=== PATIENT | male | born 1960 | race Caucasian/White ===

== ENCOUNTER → 2016-06-02 | Outpatient (CLI) | payer MEDICAID ==
[~2016-06-02] MED LIST: DAPT500V3 IV; ERGO500044 PO; OXYC5TAB84 PO; RANI150T7 PO
--- NOTE | 2016-06-02 20:44 | WOUNDPNF ---
DATE June 02, 2016 CHIEF COMPLAINT Followup for osteomyelitis of the xiphoid. HISTORY OF PRESENT ILLNESS Mr. 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 Following that he has had problems with poor healing around the upper uppermost portion of his abdominal incision which is located near the xiphoid process. He underwent incision and drainage of the draining sinus tracts with debridement of chronic granulation tissue on March 03, [address] Beltran in his office. I do not believe there were any wound cultures obtained at that time. He followed in the wound clinic for this wound and had a wound VAC placed. His wound appeared to be closed and healed on April 29. His chemotherapy was resumed on May 03 and following that he had redness and swelling and problems with recurrent infection. He was admitted recently on May [address] Beltran debrided what appeared to be an abscess cavity filled with chronic granulation tissue. He was noted to have exposed bone at the tip of the xiphoid. Wound cultures grew methicillin-resistant Staph aureus resistant to ciprofloxacin and oxacillin and susceptible to all the other agents tested. He also had a CT scan which showed an irregular soft tissue defect with erosion of the xiphoid process consistent with osteomyelitis. He was initially started on vancomycin and Zosyn on May 17 on admission. His antibiotics were changed to daptomycin on May 21 for outpatient therapy. He comes in today for followup and he denies any problems tolerating his antibiotics. He denies any specific complaints. I was contacted two days ago by Dr. Naqvi with regard to his elevated liver function tests which seemed to be worsening. He also had a right upper quadrant ultrasound obtained on May 31 which was negative for biliary ductal dilatation and had no focal hepatic lesions identified. PAST MEDICAL HISTORY, PAST SURGICAL HISTORY, SOCIAL HISTORY, FAMILY HISTORY, Reviewed. ALLERGIES No known drug allergies. CURRENT MEDICATIONS Reviewed. He is on oxycodone, Zantac, daptomycin. He denies taking Tylenol on a daily basis. REVIEW OF SYSTEMS He denies any fevers, chills or sweats. He denies any nausea, vomiting or diarrhea. He denies any abdominal pain. He has a port in place and he denies any problems related to that. PHYSICAL EXAMINATION VITAL SIGNS: Temperature 96.8, blood pressure 112/73, pulse 52, respirations 12. Weight is 154 pounds. GENERAL: He appears comfortable and is in no acute distress. HEENT: Pupils equal, round, reactive to light. Extraocular movements intact. Oropharynx is clear. NECK: Supple. HEART: Regular rate and rhythm. No murmurs noted. LUNGS: Clear to auscultation bilaterally. ABDOMEN: Soft, nontender. He has bowel sounds present. No guarding or rebound. WOUND: He has a wound VAC over the xiphoid process. I reviewed photographs on the computer of his wound and within the past few days he has had two photographs which show improvement in his wound. EXTREMITIES: No significant edema. No joint effusions are noted. SKIN: No rashes. He has a port at right anterior chest which is accessed without any surrounding redness. NEUROLOGIC: Exam is grossly nonfocal. He is alert and oriented x 3. Speech is normal. PSYCHIATRIC: Mood and affect are appropriate. LABORATORY On May 20 his ALT was 98 and this has increased to 198 on May 31. AST on May 20 was 82 and on May 31 was 210. His total bilirubin is normal at 0.6. Alkaline phosphatase has been elevated since April. May 31 it was 468 and on May 20 it was 342. C-reactive protein on May 17 was 11.5. His total CK was 170 on May 31. On May 31 his white count was 8.6, hemoglobin 11.9, platelets 149. IMPRESSION 1. Wound dehiscence/abscess, status post irrigation and debridement with exposed xiphoid bone noted as well as CT findings suggestive of osteomyelitis of the xiphoid, cultures with methicillin-resistant Staph aureus. 2. Carcinoma of the colon, stage IV, with hepatic metastases, status post right hepatic lobectomy. 3. Gastroesophageal reflux disease. 4. History of mild neutropenia. PLAN/DISCUSSION I reviewed the patient's medications with him. He is currently not on any chemotherapy agents. However, I do know there are plans to resume a palliative regimen of chemotherapy per Dr. Naqvi in the near future. He does not appear to be taking any other medications that are hepatotoxic. Daptomycin has about a 3% incidence of hepatotoxicity. At the present time he appears to be asymptomatic. I would recommend continuing with the daptomycin for now and continue to monitor his liver function tests. If they continue to increase then we might need to consider changing the vancomycin. However, this would necessitate twice-daily dosing. I will have him return to see me in followup next week. Thank you for allowing me to participate in the care of this patient. IBIS
== END ==
LOC: NWCC 11:43
PROVIDERS: ATTEND Internal Medicine Infectious Disease
DX: T81.89XA Other complications of procedures, not elsewhere classified, initial encounter (principal); Y83.8 Other surgical procedures as the cause of abnormal reaction of the patient, or of later complication, without mention of misadventure at the time of the procedure; Z87.898 Personal history of other specified conditions; C18.9 Malignant neoplasm of colon, unspecified; K21.9 Gastro-esophageal reflux disease without esophagitis

== ENCOUNTER → 2016-06-10 | Outpatient (CLI) | payer MEDICAID ==
--- NOTE | 2016-06-10 21:33 | WOUNDPNF ---
DATE 06/10/2016 HISTORY This patient has an open wound at the medial end of a right subcostal abdominal incision following incision and drainage of a subcutaneous abscess at the superior medial end of the right subcostal abdominal incision with excisional debridement of chronic granulation tissue at the subcutaneous tissue and fascia level on 05/17/[address] Beltran at [facility]. The patient has a wound VAC in place at this open wound at the upper abdomen. The wound VAC is set at a negative pressure of 150 mmHg. The patient states he will be resuming chemotherapy by Dr. Naqvi on 06/14/2016. PHYSICAL EXAMINATION Vital signs: Blood pressure is 129/87. Pulse is 62. Temperature is 97.3 degrees Fahrenheit. Weight is 150 pounds. ABDOMEN: The patient has a right subcostal abdominal incision. The patient has an open wound at a short vertically oriented extension at the medial end of the right subcostal abdominal incision. The wound is 2 cm x 1.2 cm in size today. The wound is 0.4 cm deep. There is a little bit of skin growing from the superior right margin of the wound down deep to the skin and down into the subcutaneous tissue level. Most of the wound is filled with granulation tissue. This granulation tissue is projecting up above the level of the surrounding skin at most of the wound. This is hypergranulation tissue. IMPRESSION 1. Status post right hepatic lobectomy on 03/31/2016. 2. Open wound at short vertically oriented extension at medial end of right subcostal abdominal incision following incision and drainage of subcutaneous abscess at superior medial end of right subcostal abdominal incision with excisional debridement of chronic granulation tissue at the subcutaneous tissue and fascia level on 05/17/2016. TREATMENT The wound VAC was removed at the open wound at the right subcostal abdominal incision today by [facility] nurses. Wound assessment was performed by Dr. Beltran. Some EMLA Cream was applied to the open wound to provide topical anesthesia. The hypergranulation tissue covering about 90% of the open wound today was treated by chemical cauterization with silver nitrate sticks by Dr. Beltran. Sharp excisional debridement was performed with a dermal curette by Dr. Beltran at the right superior margin of the wound where skin was growing down into the subcutaneous tissue level. This skin was debrided from the subcutaneous tissue level with the dermal curette with sharp excisional debridement. This did produce some bleeding at this level which was controlled by application of direct pressure. Satisfactory hemostasis was achieved. This did remove all the skin that was growing down into the subcutaneous tissue level at this margin of the wound. Instructions for ongoing care were provided by Dr. Beltran. The wound VAC was then reapplied to the open wound by [facility] nurses. PLAN 1. Continue negative pressure therapy to open wound at medial end of right subcostal abdominal incision with a wound VAC. Negative pressure is kept at 150 mmHg. 2. The patient will return back for another wound VAC dressing change at [facility] on 06/14/2016. 3. The patient will return back for another wound VAC dressing change again at [facility] on 06/17/2016 with reassessment of the wound by Dr. Beltran again at that time. IBIS
== END ==
LOC: NWCC 14:18
PROVIDERS: ATTEND Surgery
DX: T81.89XA Other complications of procedures, not elsewhere classified, initial encounter (principal); Y83.8 Other surgical procedures as the cause of abnormal reaction of the patient, or of later complication, without mention of misadventure at the time of the procedure
CPT/HCPCS: 11042; 97605

== ENCOUNTER → 2016-06-14 | Outpatient (CLI) | payer MEDICAID | LOC: NWCC 13:50 | PROVIDERS: ATTEND Surgery | DX: T81.89XA Other complications of procedures, not elsewhere classified, initial encounter (principal); Y83.9 Surgical procedure, unspecified as the cause of abnormal reaction of the patient, or of later complication, without mention of misadventure at the time of the procedure | CPT/HCPCS: 97605 ==

== ENCOUNTER → 2016-06-17 | Outpatient (CLI) | payer MEDICAID ==
--- NOTE | 2016-06-18 08:37 | WOUNDPNF ---
DATE 06/17/2016 HISTORY The patient has an open wound at the medial end of the right subcostal abdominal incision following incision and drainage of a subcutaneous abscess at the superior medial end of the right subcostal abdominal incision with excisional debridement of chronic granulation tissue at the subcutaneous tissue and fascia level on 05/17/[address] Beltran at [facility]. The patient has a wound VAC in place at this open wound at the upper abdomen. The wound VAC is set at a negative pressure of 150 mmHg. The patient did resume chemotherapy on 06/14/2016 under the direction of Dr. Naqvi. PHYSICAL EXAMINATION VITAL SIGNS: Temperature is 98.6 degrees. Blood pressure is 116/79. Pulse is 66. Weight is 150 pounds. ABDOMEN: The patient has a right subcostal abdominal incision. The patient has an open wound at a short vertically oriented extension at the medial end of the right subcostal abdominal incision. The wound is 0.9 cm x 0.4 cm in size today. The wound is 0.2 cm deep. There is 0.3 cm of undermining beneath the margin of the wound at 4 o'clock to 11 o'clock around the wound. There is hypergranulation tissue projecting up above the level of the surrounding skin from the center of the wound. This is hypergranulation tissue. IMPRESSION 1. Status post right hepatic lobectomy on 03/31/2016. 2. Open wound at short vertically oriented extension at medial end of right subcostal abdominal incision following incision and drainage of subcutaneous abscess at superior medial end of right subcostal abdominal incision with excisional debridement of chronic granulation tissue at the subcutaneous tissue and fascia level on 05/17/2016. 3. Hypergranulation tissue at open wound at medial end of right subcostal abdominal incision. TREATMENT The wound VAC was removed at the open wound at the right subcostal abdominal incision today by [facility] nurses. Wound assessment was performed by Dr. Beltran. The hypergranulation tissue was removed at the open portion of the wound with sharp excisional debridement with a dermal curette by Dr. Beltran. This was performed at 100% of the open surface of the wound. Hypergranulation tissue was debrided down to the subcutaneous tissue level at the open portion of the wound. This did produce some bleeding which was controlled with application of direct pressure. Satisfactory hemostasis was achieved. Instructions for ongoing care were provided by Dr. Beltran. The wound VAC was then reapplied at the open wound by [facility] nurses. IMPRESSION 1. Continue negative pressure therapy to open wound at medial end of right subcostal abdominal incision with wound VAC. 2. The patient will return back for another wound VAC dressing change at [facility] on 06/21/2016. 3. The patient will return back for another wound VAC dressing change again at [facility] on 06/24/2016 with reassessment of the wound by Dr. Beltran again at that time. IBIS
== END ==
LOC: NWCC 14:11
PROVIDERS: ATTEND Surgery
DX: T81.89XA Other complications of procedures, not elsewhere classified, initial encounter (principal); Y83.8 Other surgical procedures as the cause of abnormal reaction of the patient, or of later complication, without mention of misadventure at the time of the procedure; Z87.898 Personal history of other specified conditions
CPT/HCPCS: 11042; 97605; A6237

== ENCOUNTER → 2016-06-21 | Outpatient (CLI) | payer MEDICAID | LOC: NWCC 14:16 | PROVIDERS: ATTEND Surgery | DX: T81.89XA Other complications of procedures, not elsewhere classified, initial encounter (principal); Y83.8 Other surgical procedures as the cause of abnormal reaction of the patient, or of later complication, without mention of misadventure at the time of the procedure | CPT/HCPCS: 97605 ==

== ENCOUNTER → 2016-06-24 | Outpatient (CLI) | payer MEDICAID ==
[~2016-06-24] MED LIST changes: +SALINE FLUSH 10ml SYRINGE IVF ONE
--- NOTE | 2016-06-24 20:30 | WOUNDPNF ---
DATE 06/24/2016 HISTORY This patient has an open wound at the medial end of the right subcostal abdominal incision following incision and drainage of a subcutaneous abscess at the superior medial end of the right subcostal abdominal incision with excisional debridement of chronic granulation tissue at the subcutaneous tissue and fascia level on 05/17/[address] Beltran at [facility]. The patient has had a wound VAC in place at this open wound at the upper abdomen. The wound VAC has been set at a negative pressure of 150 mmHg. The patient is receiving chemotherapy from Dr. Naqvi. PHYSICAL EXAM ABDOMEN: The patient has a right subcostal abdominal incision. The patient has an open wound at a short vertically oriented extension at the medial end of the right subcostal abdominal incision. The wound is 1 cm x 0.4 cm in size today. The wound is 0.1 cm deep. There is no undermining of the wound today. There is no hypergranulation tissue projecting up above the level of the surrounding skin at the wound today. The entire open base of the wound is covered by healthy-appearing granulation tissue. There is no necrotic tissue or purulence anywhere. There is no wound exudate. IMPRESSION 1. Status post right hepatic lobectomy on 03/31/2016. 2. Open wound at short vertically oriented extension at medial end of right subcostal abdominal incision following incision and drainage of a subcutaneous abscess at superior medial end of right subcostal abdominal incision with excisional debridement of chronic granulation tissue at the subcutaneous tissue and fascia level on 05/17/2016. TREATMENT The wound VAC was removed today at the wound at the right subcostal abdominal incision by [facility] nurses. Wound assessment was performed by Dr. Beltran. No debridement was needed anywhere at the wound today. Instructions for ongoing care were then provided by Dr. Beltran. A decision was made to discontinue use of the wound VAC and switch to Norah and Mepilex dressings at the open wound. The [facility] nurses did then apply some Norah and Mepilex dressings to this open wound. PLAN 1. Discontinue use of the wound VAC at this time. 2. We will switch to Norah and Mepilex wound care dressings at this time. 2. Dressing change again on 06/28/2016. 3. Return back to [facility] for another dressing change on 07/01/2016. The wound will be reassessed by Dr. Beltran again at that time. MTDD
== END ==
LOC: NWCC 14:09
PROVIDERS: ATTEND Surgery
DX: T81.89XA Other complications of procedures, not elsewhere classified, initial encounter (principal); Y83.8 Other surgical procedures as the cause of abnormal reaction of the patient, or of later complication, without mention of misadventure at the time of the procedure
CPT/HCPCS: A6021; A6210; G0463

== ENCOUNTER → 2016-06-28 | Outpatient (CLI) | payer MEDICAID | LOC: NWCC 14:17 | PROVIDERS: ATTEND Surgery | DX: T81.89XA Other complications of procedures, not elsewhere classified, initial encounter (principal); Y83.8 Other surgical procedures as the cause of abnormal reaction of the patient, or of later complication, without mention of misadventure at the time of the procedure; Z87.898 Personal history of other specified conditions | CPT/HCPCS: A6210; G0463 ==

== ENCOUNTER → 2016-07-01 | Outpatient (CLI) | payer MEDICAID ==
[~2016-07-01] MED LIST changes: -SALINE FLUSH 10ml SYRINGE IVF ONE
--- NOTE | 2016-07-02 12:19 | WOUNDPNF ---
DATE 07/01/2016 HISTORY This patient had an open wound at the medial end of the right subcostal abdominal incision following incision and drainage of a subcutaneous abscess at the superior medial end of the right subcostal abdominal incision with excisional debridement of chronic granulation tissue at the subcutaneous tissue and fascia level on 05/17/[address] Beltran at [facility]. The patient did have intravenous antibiotics started during that hospitalization at [facility]. The patient reports that the intravenous antibiotics which he has been receiving on an outpatient basis since then have been discontinued. His PICC line has been removed. The patient continues to receive chemotherapy by Dr. Naqvi. PHYSICAL EXAMINATION ABDOMEN: The patient has a right subcostal abdominal incision. The patient did have an open wound at a short vertically-oriented extension at the medial end of the right subcostal abdominal incision. This wound appears to be healed closed today. There is a small 0.5 cm x 0.3 cm area with a new layer of epithelium over it where the open wound had previously been located. This looks like it is healed closed today. IMPRESSION 1. Status post right hepatic lobectomy on 03/31/2016. 2. Complete healing of previous open wound at a short vertically-oriented extension at medial end of right subcostal abdominal incision. TREATMENT The Mepilex wound care dressings were removed at the right subcostal abdominal incision wound by [facility] nurses today. Wound assessment was performed by Dr. Beltran. Instructions for ongoing care were then provided by Dr. Beltran. The [facility] nurses did apply a Mepilex dressing over this previous open area to keep this from breaking down again. PLAN 1. We had been applying Norah and Mepilex wound care dressings since the previous office visit on 06/25/2015. We will just have the patient keep this area covered at home with a Mepilex dressing for a little while longer to keep this from breaking down again. 2. No further [facility] visits are scheduled at this time. The patient will return to the [facility] p.r.n. IBIS
== END ==
LOC: NWCC 13:54
PROVIDERS: ATTEND Surgery
DX: T81.89XA Other complications of procedures, not elsewhere classified, initial encounter (principal); Y83.8 Other surgical procedures as the cause of abnormal reaction of the patient, or of later complication, without mention of misadventure at the time of the procedure
CPT/HCPCS: A6209; G0463

== ENCOUNTER → 2016-07-26 | Outpatient (CLI) | payer MEDICAID | LOC: LABN 10:17 | PROVIDERS: ATTEND Internal Medicine Hematology & Oncology | DX: T81.4XXS Infection following a procedure, sequela (principal); B95.62 Methicillin resistant Staphylococcus aureus infection as the cause of diseases classified elsewhere; Y83.9 Surgical procedure, unspecified as the cause of abnormal reaction of the patient, or of later complication, without mention of misadventure at the time of the procedure | CPT/HCPCS: 87070; 87075; 87147; 87186; 87205 ==

== ENCOUNTER → 2016-07-26 | Outpatient (CLI) | payer MEDICAID ==
--- NOTE | 2016-07-26 16:00 | DI ---
EXAM: CT abdomen pelvis with contrast. DATE: LOCATION OF DICTATION: [place] HISTORY: ITS.REASON: T81.4XXS Infection following a procedure, sequela; B95.62 COMPARISON: No prior studies are available for comparison TECHNIQUE: CT images were obtained of the abdomen and pelvis utilizing 85 mL of Omnipaque 300. Coronal and sagittal reformations were utilized. Automated Exposure Control and Iterative Reconstruction dose reducing techniques were utilized. CT CHEST FINDINGS: Right chest port remains in place. The heart size is normal. There is no pericardial effusion. There is stable scarring within the right lung base. There are no consolidating opacities or pleural effusions. There is no pneumothorax. No mediastinal or hilar lymph nodes. There are few calcified granulomas within the mediastinum which may reflect a chronic granulomatous disease. There are few stable subcentimeter axillary lymph nodes. Sebaceous cyst noted anterior to the sternum unchanged. No suspicious or destructive osseous lesions. CT ABDOMEN PELVIS FINDINGS: LIVER: Postsurgical changes demonstrated about the right hepatic lobe status post resection again demonstrating pericapsular calcifications and lobulation. No suspicious liver masses are identified. There is no biliary ductal dilatation. SPLEEN: The spleen remains prominent. GALLBLADDER: Appears surgically absent. PANCREAS: Unremarkable. ADRENAL GLANDS: Unremarkable. KIDNEYS: The visualized portions of the kidneys are unremarkable. AORTA: Unremarkable. LYMPH NODES: There is some stable mild fat stranding and a few adjacent lymph nodes within the right abdomen/right lower quadrant. Findings may reflect postsurgical changes. STOMACH BOWEL LOOPS: Surgical anastomosis demonstrated about the proximal colon within the right lower abdomen. There is mild retained fecal material within the colonic bowel. No evidence for bowel obstruction or free air. Moderate debris within the stomach. PERITONEAL CAVITY: There is stable to slight decrease in size of soft tissue density within the ventral abdomen below the xiphoid process and stable [place] fat containing ventral abdominal hernia. IMPRESSION: 1. Stable CT chest and abdomen without evidence for developing pulmonary or abdominal/pelvic visceral metastases or jannet metastases. 2. Stable to slight decrease in size of soft tissue density adjacent to the xiphoid process extending to the cutaneous surface may represent postoperative or related scarring, infection, or neoplasm. Continued follow-up is recommended. 3. Postoperative changes demonstrated about the right hepatic lobe and involving the proximal colon. There is some nonspecific fat stranding in adjacent lymph nodes of the right lower quadrant similar to the previous study and again may be postoperative in nature. Continued follow-up is recommended to ensure stability/resolution of these findings. .
== END ==
LOC: IMA 11:37
PROVIDERS: ATTEND Internal Medicine Hematology & Oncology
DX: T81.4XXS Infection following a procedure, sequela (principal); B95.62 Methicillin resistant Staphylococcus aureus infection as the cause of diseases classified elsewhere; M79.89 Other specified soft tissue disorders; M89.8X8 Other specified disorders of bone, other site; Z97.8 Presence of other specified devices; Z98.0 Intestinal bypass and anastomosis status; Z98.890 Other specified postprocedural states

== ENCOUNTER → 2016-07-27 | Outpatient (CLI) | payer MEDICAID | LOC: NWCC 14:19 | PROVIDERS: ATTEND Surgery | DX: L98.492 Non-pressure chronic ulcer of skin of other sites with fat layer exposed (principal); M86.8X8 Other osteomyelitis, other site; Z86.14 Personal history of Methicillin resistant Staphylococcus aureus infection | CPT/HCPCS: A6209; G0463 ==

== ENCOUNTER → 2016-07-29 | Outpatient (CLI) | payer MEDICAID | LOC: NWCC 16:11 | PROVIDERS: ATTEND Surgery | DX: L98.492 Non-pressure chronic ulcer of skin of other sites with fat layer exposed (principal); M86.8X8 Other osteomyelitis, other site | CPT/HCPCS: A6209; A6210; G0463 ==

== ENCOUNTER → 2016-08-04 | Outpatient (CLI) | payer MEDICAID ==
[~2016-08-04] MED LIST changes: +SALINE FLUSH 10ml SYRINGE IVF ONE
--- NOTE | 2016-08-04 15:19 | WOUNDPNF ---
DATE August 04, 2016 CHIEF COMPLAINT Followup for wound over xiphoid process with MRSA. HISTORY OF PRESENT ILLNESS Mr. Cummings is a 55-year-old man with a history of stage IV colon cancer with metastases to the liver. He underwent right hepatic lobectomy January 30, [address] Tony Ordonez at the [facility] in [place], [place]. He had some problems with wound healing of his abdominal incision following that and was noted to have redness and drainage from the superior end of this incision in February. He had two small openings at the medial superior end of the right subcostal abdominal incision. He underwent incision and drainage of the draining sinus tracts with debridement of chronic granulation tissue on March 03, [address] Beltran in his office. I do not believe there were any cultures obtained at that time. He had a wound VAC placed and followed in the wound clinic and his wound had closed and healed by April 29, 2016. His chemotherapy was on hold while the wound was healing, however he returned to chemotherapy on May 03, 2016. Following that, he had redness and swelling and tenderness along the medial superior end of the right subcostal abdominal incision. He was admitted to [facility] on May 17. Dr. Beltran debrided what appeared to be an abscess cavity filled with chronic granulation tissue. He was noted to have exposed bone at the tip of the xiphoid. There were two wound cultures obtained May 17 and they both grew methicillin-resistant staph aureus resistant to ciprofloxacin and oxacillin. He had a CT of the abdomen and pelvis May 18 which showed a large irregular soft tissue defect with erosion of the xiphoid process consistent with osteomyelitis. There was no evidence of worsening metastatic disease. He was treated with vancomycin during his hospitalization, however, he was transitioned to daptomycin on discharge for the convenience of once daily dosing. He was treated with six weeks of daptomycin and his wound healed up after that. I last saw him in the Wound Clinic on June 02 and he was not completely finished with his IV daptomycin at that point. I wanted to see him in followup again but he did not follow up with me. On July 26, I was contacted by Dr. Naqvi who was seeing him in the clinic that day. He noted that the patient reported increased swelling and redness over the xiphoid process that had started up again over Easter weekend. Dr. Naqvi lanced this area and drained it and sent off wound cultures which grew methicillin resistant staph aureus with similar susceptibilities. He had blood cultures drawn on July 26 which are no growth. The patient was started on daptomycin again on July 26. He was referred back to Dr. Beltran. I have been in discussion with Dr. Beltran and Dr. Naqvi about this patient and I am seeing him back in followup today. The patient had a CT of the chest and abdomen without contrast on July 26 which did not show any liver lesions, no evidence of metastatic disease. There was a soft tissue density noted adjacent to the xiphoid process extending to the cutaneous surface. This was compared with the previous CT scan and has apparently decrease in overall bulk however, there has been interval development of a fracture or lytic osseous process involving the tip of the xiphoid process. The patient reports to me today that his wound has been improving and denies any significant problems with the daptomycin. PAST MEDICAL HISTORY Colon cancer stage IV with metastasis to the liver. Acid reflux disease. History of recurrent abscess along his abdominal incision near the xiphoid process with Methicillin-resistant Staphylococcus aureus PAST SURGICAL HISTORY Right hepatic lobectomy January 2016. Open reduction internal fixation right arm 1991. Cholecystectomy, July 2015. Right hemicolectomy July 2015. Liver biopsy and PowerPort placement 2015. Wound debridement procedures as described above. ALLERGIES No known drug allergies. FAMILY HISTORY His father of a brain aneurysm at age 65. SOCIAL HISTORY He is single. He lives by himself in [place]. Records have indicated he uses smokeless tobacco and alcohol. Today he denies any tobacco or alcohol use to me. CURRENT MEDICATIONS He is currently on daptomycin 600 mg IV daily since July 26. REVIEW OF SYSTEMS He denies any recent fevers, chills or sweats. He denies any nausea, vomiting or diarrhea. He reports fatigue intermittently and also sometimes associated with exertion. He has had pain around this wound which has improved. Otherwise the 10-point review of systems is negative other than that mentioned above. PHYSICAL EXAMINATION VITALS: Temperature is 97.1. Blood pressure 119/82. Pulse 73. Respirations 14. Weight is 154 pounds. GENERAL: He is a thin man who appears comfortable and is in no acute distress. HEENT: Pupils equal, round, reactive to light. Extraocular movements intact. Oropharynx is clear. Dentition is fair. NECK: Neck is supple. HEART: Regular rate and rhythm. No murmurs noted. LUNGS: Clear to auscultation bilaterally anteriorly. ABDOMEN: Soft and nontender. He has mild to moderate hernia noted on abdominal exam which appears to be reproducible and he has no abdominal tenderness. He has bowel sounds present. EXTREMITIES: No joint effusions are noted. No peripheral edema is noted. SKIN: He has a port accessed in the right anterior chest without any surrounding redness or drainage. He has a wound along his previous abdominal scar and just over the xiphoid process that appears clean and without any significant purulence. This also does not have any significant depth or exposed bone noted and is not significantly tender to palpation. NEURO: Exam is grossly nonfocal. He is alert and oriented x3. Speech is normal. PSYCHIATRIC: His mood and affect are appropriate. LABORATORY Laboratory was reviewed. His white blood cell count on July 26 was 4.0, on July 29 it was 21.7 and on August 02 it was 6.7. Hemoglobin was 12.0 on August 02, platelets were 96. His sed rate on July 26 was 30. C-reactive protein on July 26 was 8.5. His AST on August 02 was 140, on July 29 it was 90. ALT on August 02 was 100 and on July 29 was 72. Alkaline phosphatase 553. Last week on July 29 it was 495. His LDH was 763. His CK was 427 on August 02. His CPK has fluctuated in the past and was up as high as 319 on July 12 but then came down to 117 on July 19. IMPRESSION 1. Recurrent wound infection over the xiphoid process, suspect underlying osteomyelitis. 2. History of exposed bone at the xiphoid process in May 2016, treated with six weeks of daptomycin. 3. Carcinoma of the colon, stage IV, with hepatic metastases, status post right hepatic lobectomy. 4. Gastroesophageal reflux disease. RECOMMENDATIONS Even though his sed rate and CRP are not significantly elevated, the fact that this process has recurred now three times is highly suggestive of a deep focus of infection that has persisted. His most recent CT shows changes at the xiphoid process which could be due to infection versus malignancy. His imaging is not showing any other metastatic disease and so I think most likely this is infection. A bone biopsy could be done to prove this diagnosis, however he has already been treated once for osteomyelitis here with six weeks of IV antibiotics. I would recommend further surgical debridement with possibly resection of the xiphoid process to remove this as a focus of infection, followed by six weeks of IV antibiotics. If this is not felt to be a reasonable option then I discussed with the patient we could finish out another six-week course of IV antibiotics followed by chronic oral antibiotic suppression. Also the patient reports to me that he has plans to go out of town for a reunion on August 28 for two days. I will give him oral Bactrim one double-strength tablet p.o. b.i.d. for him to take August 29 and August 30 until he can return to resume his daptomycin. Six weeks of daptomycin therapy from July 26 would end on September 06. I will plan to see him back in followup in a few weeks. IBIS
== END ==
LOC: NWCC 09:28
PROVIDERS: ATTEND Internal Medicine Infectious Disease
DX: L98.492 Non-pressure chronic ulcer of skin of other sites with fat layer exposed (principal); C18.9 Malignant neoplasm of colon, unspecified; K21.9 Gastro-esophageal reflux disease without esophagitis; M86.68 Other chronic osteomyelitis, other site
CPT/HCPCS: A6209; G0463

== ENCOUNTER → 2016-08-05 | Outpatient (CLI) | payer MEDICAID ==
[~2016-08-05] MED LIST changes: -SALINE FLUSH 10ml SYRINGE IVF ONE
--- NOTE | 2016-08-06 14:46 | WOUNDPN ---
DATE 08/05/2016 HISTORY See 08/04/2016 [facility] progress note by Dr. Latoya Grace for background and detailed history regarding this patient. The patient does have an old right subcostal abdominal incision. The patient has an open wound at a short vertically-oriented extension at the medial end of the right subcostal abdominal incision. The patient did have a Hydrofera Blue Classic antibacterial foam dressing covered with Mepilex dressings at the wound as he came into [facility] today. The patient has been receiving daptomycin 600 mg IV daily since 07/26/2016. PHYSICAL EXAMINATION VITAL SIGNS: Blood pressure is 107/71. Pulse is 73. Respiratory rate is 18. Oxygen saturation is 97.3% on room air. ABDOMEN: The patient has a right subcostal abdominal incision. The patient has an open wound at a short vertically-oriented extension at the medial end of the right subcostal abdominal incision. The wound is 1.2 cm wide in a dbarn-[id number] direction. The wound is 0.9 cm wide in a iwbvxmqp-or-bdffxoti direction. The wound initially appeared to have a depth of 0.6 cm today. There was red granulation tissue at most of the superficial portion of this wound. There was an area of hypergranulation tissue which projected up above the rest of the wound near the superior end of the open area. Removal of this hypergranulation tissue did reveal an underlying chronic sinus tract filled with chronic granulation tissue which led from this open wound all the way down to the tip of the xiphoid. IMPRESSION 1. Status post right hepatic lobectomy on 03/31/2016. 2. Recurrent methicillin-resistant Staphylococcus aureus abscess at abdominal incision near the xiphoid process probably due to underlying osteomyelitis at the xiphoid process. I agree with Dr. Latoya Grace that the fact that this process has recurred now three times is highly suggestive of a deep focus of infection which has persisted. I think that the focus of infection is osteomyelitis of the xiphoid process. 3. Findings consistent with osteomyelitis at xiphoid process demonstrated on 07/26/2016 CT scan of the chest and abdomen. 4. Status post six weeks of daptomycin treatment of the osteomyelitis at the xiphoid process with recurrence of the abscess after completion of this course of treatment. 5. Open wound with sinus tract leading down to the xiphoid process following incision and drainage of recurrent MRSA abscess at abdominal incision near xiphoid process on 07/26/2016. TREATMENT The Mepilex and Hydrofera Blue Classic antibacterial foam dressings were removed at the open wound at the abdomen today by [facility] nurses. Wound assessment was performed by Dr. Beltran. The area of hypergranulation tissue at the open wound was sharply excised with iris scissors. This did produce some bleeding. This did expose the underlying sinus tract. Chronic granulation tissue was then sharply excised and debrided out of this sinus tract by Dr. Beltran. All of this did produce a lot of bleeding which was controlled with chemical cauterization with silver nitrate sticks. It is estimated that sharp excisional debridement was performed at the subcutaneous tissue level today at 40% of the open surface of this wound. Hemostasis was eventually achieved. Instructions for ongoing care were then provided by Dr. Beltran. The [facility] nurses did then apply Hydrofera Blue Classic antibacterial foam dressings into the wound and cover this with some Mepilex dressings. RECOMMENDATION 1. I think that the patient will require resection of the xiphoid process to remove this as a focus of infection before this wound will ever heal and remain healed. Dr. Grace did recommend this and recommended that this be followed by six weeks of intravenous antibiotics. I would like to refer the patient to Dr. Dimitris Camara at [place], [place] for consultation regarding this and to have him perform this procedure if he agrees that this is indicated. 2. Continue local wound care at the open wound with application of Hydrofera Blue Classic antibacterial foam dressings covered with Mepilex dressings. The patient is instructed to continue to return back to [facility] for this local wound care of the open wound. 3. Continued followup with Dr. Latoya Grace. 4. I will plan to see the patient again to assist with wound care at the open wound on 08/12/2016. 5. Continue the daptomycin 600 mg IV daily, as directed by Dr. Latoya Grace.
== END ==
LOC: NWCC 13:47
PROVIDERS: ATTEND Surgery
DX: L98.492 Non-pressure chronic ulcer of skin of other sites with fat layer exposed (principal); M86.68 Other chronic osteomyelitis, other site
CPT/HCPCS: 11042

== ENCOUNTER 2017-10-04 15:37 | Observation (INO) ==
[2017-10-04] MEDS ORDERED: ACETAMINOPHEN 325 MG TABLET PO PRN (15:42)
[2017-10-04] MEDS ORDERED: PROCHLORPERAZINE 10 MG/2 ML INJECTION IVP PRN (15:42)
[2017-10-04] MEDS ORDERED: BISACODYL 10 MG SUPPOSITORY RECTALLY PRN (15:43)
--- OUTSIDE RECORDS SUMMARY | 2017-10-04 15:57 | External Medical Summary | Clinical Summary ---
:1960 Author Organization [facility] Address [address] [place] [address] Care Team Providers Name Role Phone Tony Ordonez MD Unavailable No Pcp, Na Primary Care Provider Unavailable Source Comments Some departments are not documenting in the electronic medical record. If you do not see the information that you expected, contact Release of Information in the Health Information Management department at [phone] for further assistance in locating additional records.[facility] Allergies Active Allergy Reactions Severity Noted Date Comments Seasonal Allergies SNEEZING Low 01/15/2016 Current Medications Prescription Sig. Disp. Refills Start Date End Date Status potassium chloride(+) Take 20 mEq by 12/09/2015 Active (MICRO-K) 10 mEq capsule mouth daily. ranitidine hcl(+) 150 mg twice 12/25/2015 Active (ZANTAC) 150 mg tablet daily. vitamins, multiple Take 1 Tab by Active tablet mouth daily. senna/docusate Take 2 Tabs by 120 Tab 0 02/08/2016 Active (SENOKOT-S) 8.6/50 mg mouth twice daily. tablet oxyCODONE (ROXICODONE, Take 1-2 Tabs by 30 Tab 0 02/08/2016 Active OXY-IR) 5 mg tablet mouth every 6 hours as needed for Pain polyethylene glycol 3350 Take 1 Packet by 12 Each 02/08/2016 Active (MIRALAX) 17 g packet mouth twice daily. levoFLOXacin (LEVAQUIN) Take 1 Tab by 5 Tab 0 02/08/2016 Active 500 mg tablet mouth daily. Active Problems Problem Noted Date Colon cancer (HCC) 01/30/2016 History of known metastasis to liver 01/16/2016 Immunizations Name Dates Previously Given Next Due Flu Vaccine Quadrivalent=>3 Yo (Preservative Free) 02/05/2016 Social History Tobacco Use Types Packs/Day Years Used Date Former Smoker 1 10 Quit: 04/11/1995 Smokeless Tobacco: Current User Chew Alcohol Use Drinks/Week oz/Week Comments No 0 Standard drinks or equivalent 0.0 very rarely Sex Assigned at Date Recorded Not on file Last Filed Vital Signs Vital Sign Reading Time Taken Blood Pressure 113/74 02/26/2016 9:09 AM [employer] Pulse 60 02/26/2016 9:09 AM [employer] Temperature 36.5 C (97.7 F) 02/26/2016 9:09 AM [employer] Respiratory Rate - - Oxygen Saturation 99% 02/26/2016 9:09 AM [employer] Inhaled Oxygen Concentration - - Weight 67 kg (147 lb 12.8 oz) 02/26/2016 9:09 AM [employer] Height 172.7 cm (5' 8") 02/26/2016 9:09 AM [employer] Body Mass Index 22.47 02/26/2016 9:09 AM [employer] [facility] Plan of Treatment Health Maintenance Due Date Last Done Comments HEPATITIS C SCREENING 1960 PHYSICAL (COMPREHENSIVE) EXAM 08/11/1967 PERTUSSIS VACCINE 08/11/1971 HIV SCREENING 08/11/1975 TETANUS VACCINE 08/10/1977 COLORECTAL CANCER SCREENING 08/10/2010 SHINGLES RECOMBINANT VACCINE (1 of 2) 08/10/2010 INFLUENZA VACCINE 01/09/2018 02/05/2016
--- OUTSIDE RECORDS SUMMARY | 2017-10-04 15:57 | External Medical Summary | Clinical Summary ---
:1960 Author Organization [facility] Address [address] [address] Care Team Providers Name Role Phone Butch Carvajal MD Primary Care Provider Allergies No Known Allergies Current Medications Prescription Sig. Disp. Refills Start Date End Date Status ibuprofen (ADVIL,MOTRIN) Take 400 mg by Active 400 MG tablet mouth every 6 (six) hours as needed for Mild Pain. diphenhydrAMINE (BENADRYL) Take 25 mg by Active 25 mg capsule mouth every 6 (six) hours as needed for Itching. guaifenesin-codeine Take 5 mLs by 120 mL 0 05/16/2017 Active (ROBITUSSIN AC) 100-10 mouth at MG/5ML syrupIndications: bedtime as Viral syndrome needed for Cough or Congestion. methylPREDNISolone (MEDROL Take 1 tablet 21 tablet 0 05/16/2017 Active DOSPAK) 4 MG (4 mg total) tabletIndications: Viral by mouth See syndrome Admin Instructions. Active Problems Problem Noted Date Viral syndrome 05/16/2017 Internal hemorrhoids 05/16/2017 Allergic contact dermatitis due to plants, except food 02/16/2016 Closed fracture of right hand, initial encounter 01/16/2015 Immunizations Name Dates Previously Given Next Due Td(adult), adsorbed 02/02/2008 Family History Medical History Relation Name Comments No Known Problems Father No Known Problems Mother Relation Name Status Comments Father Alive Mother Alive Social History Tobacco Use Types Packs/Day Years Used Date Never Smoker Smokeless Tobacco: Never Used Tobacco Cessation: Counseling Given: No Alcohol Use Drinks/Week oz/Week Comments No Alcoholic Drinks/day: Never Sex Assigned at Date Recorded Not on file Last Filed Vital Signs Vital Sign Reading Time Taken Blood Pressure 140/88 05/16/2017 9:57 AM [employer] Pulse 80 05/16/2017 9:57 AM [employer] Temperature 37.6 C (99.6 F) 05/16/2017 9:57 AM [employer] Respiratory Rate 16 05/16/2017 9:57 AM [employer] Oxygen Saturation 98% 12/28/2012 1:50 PM CDT Inhaled Oxygen Concentration - - Weight 85 kg (187 lb 8 oz) 05/16/2017 9:57 AM [employer] Height 175.3 cm (5' 9") 05/16/2017 9:57 AM [employer] Body Mass Index 27.69 05/16/2017 9:57 AM [employer] DEAL[employer] Plan of Treatment Health Maintenance Due Date Last Done Comments Hepatitis C Screening 1960 DTaP,Tdap,and Td Vaccines (1 - Tdap) 02/03/2008 02/02/2008 Colon Cancer Screening 04/12/2010 Zoster Recombinant Vaccine (RZV,Shingrix) (1 of 2 - 04/12/2010 [facility] 2 Dose Standard) Influenza Vaccine (Season Ended) 2017 Results Not on filefrom Last 3 Months
[2017-10-04 16:14] VITALS: BMI 25.0
--- NOTE | 2017-10-04 16:33 | History & Physical Report ---
History of Present Illness Date: 10/04/17 Chief complaint: right pneumothorax HPI: Mateusz Cummings is a very pleasant 57-year-old male patient of Dr. Rudolph who follows with Dr. Naqvi for his stage HANH colon cancer. He reports that he underwent a scheduled lung needle biopsy to his right anterior middle lobe on . Chest x-ray following the procedure revealed mildly sized right pneumothorax. Serial chest x-rays revealed persistent right pneumothorax with the most recent chest x-ray being today, 10/04/17 which revealed sizable right- sided pneumothorax that had increased in size since the previous study on . Due to his persistent pneumothorax, Dr. Holcomb was consulted and he was accepted into observation status for further evaluation, close respiratory monitoring and placement of a chest tube. His length of stay is not expected to exceed more than 2 over nights. On exam, he is seen immediately upon his arrival to his room. He is sitting up in bed with nursing present. He complains of diffuse right sided chest and back pain as well as mild shortness of breath. No recent fevers, chills, nausea , vomiting, dysuria or diarrhea. He also reports occasional dry cough since undergoing the lung biopsy. He is breathing easily on room air without signs of distress. Nursing easily accesses his port. Review of Systems All systems PM: 10-point ROS was reviewed, no additional remarkable complaints except - Constitutional Constitutional: Absent: chills, fever(s), weakness Comments: Poor appetite. - EENMT Eyes: Absent: blurry vision, diplopia, loss of vision, photophobia Ears: Absent: ear pain Balance: Absent: falling to one side Nose: Present: nosebleeds (occasional - none currently), allergies Mouth/Throat: Absent: sore throat, changes in swallowing, dry mouth - Cardiovascular Cardiovascular: Present: dyspnea on exertion. Absent: chest pain, palpitations , syncope, edema Vascular: Absent: pallor of an extermity, pedal edema, unilateral swelling - Respiratory Respiratory: Present: cough (dry), dyspnea, dyspnea on exertion, pain on inspiration. Absent: hemoptysis, wheezing - Gastrointestinal Gastrointestinal: Present: abdominal pain (right sided - chronic). Absent: diarrhea, hematochezia, melena, nausea, vomiting - Genitourinary Genitourinary: Absent: dysuria, flank pain, hematuria - Musculoskeletal Musculoskeletal: Present: back pain (right upper back). Absent: abnormal gait, deformity, limited range of motion - Integumentary/Breasts Integumentary: Absent: rash - Neurological Neurological: Absent: abnormal gait, confusion, dizziness, frequent falls, vertigo, weakness - Psychiatric Psychiatric: Absent: anxiety, depression - Endocrine Endocrine: Absent: flushing, heat intolerance, palpitations - Hematologic/Lymphatic Hematologic/Lymphatic: Absent: easy bruising - Allergic/Immunologic Allergic/Immunologic: Present: seasonal rhinorrhea Past Medical History Medical History Updates: Colon cancer, stage HANH. 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 Chronic pain. History of MRSA. Vitamin D deficiency. 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 Lumbar radiculopathy. Systolic murmur. History of epistaxis. Allergic rhinitis. GERD. Surgical History: Cholecystectomy - 07/31/15. Exploratory laparotomy - 07/31/15. Right arm orthopedic surgery following crush injury. Needle biopsy liver nodule - 07/31/15. Right hemicolectomy - 07/31/15. Resection of xyphoid secondary to osteomyelitis and MRSA - 08/31/16. Excisional debridement of abdominal wound - 09/14/16. Family History: Mother - , colon cancer with mets. Father - , age 65, brain aneurysm. Aunt - back cancer. Cousin - stomach cancer, brain cancer. Family History: As Above - Social History Smoking status: Former smoker (quit 1984) Packs per day: 1 Packs-years: 15 second hand exposure: No Substance use type: does not use Alcohol intake frequency: does not drink Housing: other (trailer) Household members: friend(s) service: No Current occupational status: retired (pipefitter welder/diesel truck mechanic) Current occupational exposures/hazards: No Does patient use chewing tobacco?: No Current residence: Apartment/Private Home Social history: PCP - Dr. Rudolph. Onc - Dr. Naqvi. Pulm - Dr. Gleason. Medications Home Medications Medication Instructions Recorded Confirmed Type Acetaminophen [Tylenol] 500 - 1,000 mg PO PRN PRN 09/19/17 09/19/17 History Famotidine [Pepcid] 1 tab PO BID 09/19/17 10/03/17 History Loperamide [Imodium] 2 mg PO PRN PRN 09/19/17 09/19/17 History Loratadine [Claritin] 10 mg PO DAILY 09/19/17 10/03/17 History Oxycodone HCl 10 mg PO Q4H PRN 09/19/17 10/03/17 History Allergies Allergy/AdvReac Type Severity Reaction Status Date / Time No Known Allergies Allergy Verified 10/03/17 10:57 Exam Height/Weight/BMI: Height 5 ft 8 in Weight 164 lb 10.965 oz Body Mass Index 25.0 Comments: Patient is sitting up in bed, breathing easily on room air. Nursing present on exam. - Constitutional Present: no acute distress, well nourished, well developed, cooperative - Routine HEENT Exam Head: Present: normocephalic, atraumatic Eye: Present: PERRL. Absent: conjunctival icterus ENT: Present: mucous membranes moist, oropharynx clear, dentition normal - Routine Neck Exam Present: supple, full ROM - Routine Chest/Breast/Axilla Exam Chest wall: Absent: pacemaker Comments: subcutaneous emphysema on right. - Routine Respiratory Exam Present: dyspnea (mild), decreased breath sounds (right). Absent: respiratory distress, wheezes - Routine Cardiovascular Exam Present: S1, S2, murmur (systolic), bradycardia - Routine Abdominal Exam Present: soft, normoactive bowel sounds, tenderness (mild, right upper quadrant) . Absent: guarding - Routine Extremities Exam Present: no edema, full ROM, pulses intact - Routine Back/Spine/Pelvis Exam Back/Spine: Present: full ROM. Absent: vertebral tenderness - Routine Skin Exam Present: intact, dry, warm Comments: Afebrile. - Routine Neurological Exam Present: alert, oriented X3, moving all extremities, hearing grossly intact, normal speech - Routine Psychiatric Exam Present: normal affect, cooperative Results - Labs CBC & Chem 7: 10/04/17 18:57 10/04/17 18:57 Assessment and Plan Assessment and Plan: Assessment Right pneumothorax, acute; post procedure S/P right lung needle biopsy, 10/03/17. Colon cancer, stage HANH. 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 Chronic pain. History of MRSA. Vitamin D deficiency. 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 Lumbar radiculopathy. Systolic murmur. History of epistaxis. Allergic rhinitis. GERD. Plan Admit to observation status under the care of Dr. Holcomb. Dr. Lopez consulted for potential surgical intervention. Small caliber Heimlich valve chest tube to be placed. Monitor respiratory status closely on telemetry with continuous pulse oximetry. Oxygen as needed to maintain SAO2 >90%, weaning as able. Will obtain CBC and CMP now for further assessment on admission. Recheck labs in AM to monitor blood counts, electrolytes and renal function. History of electrolyte imbalances, neutropenia and anemia. Morphine and oxycodone for pain control. Zofran as needed for nausea/vomiting. Regular diet as tolerated following chest tube placement. Consider pulmonology consult to Dr. Gleason given placement of chest tube. Continue home medications. Upon discharge, patient's care will be returned to his PCP, Dr. Rudolph. Patient requests to be a FULL CODE. DVT Prophylaxis: SCD's GI Prophylaxis: Pepcid Resuscitation Status: Full Code - Time spent with patient Time with patient PN: 70 minutes - Physician Narrative Physician: Edgar Holcomb MD Narrative: Date: 10/04/17 Time: 1916 Have independently interviewed and examine pt. Chart reviewed. Case discussed with Dr Liu, Dr Lopez and my PA. Care plan developed with my supervision ; agree with above. Had CT guided bx of lung mass yesterday. Tolerated procedure well, but did develop small pneumothorax. Repeated CXR showed stability. Went home, but noted increasing pain to right side of chest. [place] much more SOA with positional changes. Dry cough-significant pain with coughing. No n/v. No palpitations. Would feel very hot, then vary cold. Came back today for follow up CXR which showed increase in pneumothorax. Place in OBS for definitive treatment. Lungs: decreased bilaterally, good air movement. No distress on RA CV: regular AB: soft nt/nd MSE: awake alert appropriate Plan: OBS admission. Heimlich valve chest tube placed by radiology. CXR checked post procure and will recheck again in am. Monitor respiratory status. Continue home pain medications. Have alerted Dr Lopez in[place]yung of increased surgical needs. Hospital Course Summary Disclaimer: The visit summary below is not to be considered part of the above Progress Note. Hospital Course: Plan - 10/04/17: Admit to observation status under the care of Dr. Holcomb. Dr. Lopez consulted for potential surgical intervention. Small caliber Heimlich valve chest tube to be placed. Monitor respiratory status closely on telemetry with continuous pulse oximetry. Oxygen as needed to maintain SAO2 >90%, weaning as able. Will obtain CBC and CMP now for further assessment on admission. Recheck labs in AM to monitor blood counts, electrolytes and renal function. History of electrolyte imbalances, neutropenia and anemia. Morphine and oxycodone for pain control. Zofran as needed for nausea/vomiting. Regular diet as tolerated following chest tube placement. Consider pulmonology consult to Dr. Gleason given placement of chest tube.\ Continue home medications. Upon discharge, patient's care will be returned to his PCP, Dr. Rudolph. Patient requests to be a FULL CODE.
[2017-10-04] MEDS ORDERED: MORPHINE SULFATE 2mg INJECTION IVP PRN (16:51)
[2017-10-04] MEDS ORDERED: ONDANSETRON 4 MG/2 ML INJECTION IVP PRN (16:57)
--- NOTE | 2017-10-04 17:55 | Fluoroscopy Report ---
Indication:Chest tube placement Procedure:FL fluoroscopy chest CHEST TUBE PLACEMENT WITH FLUOROSCOPIC GUIDANCE: Technique: After discussing the details of the procedure, including the risks, the patient wished to proceed. Informed consent was obtained. A preprocedural timeout was performed to confirm the correct patient and procedure. Using aseptic technique, local lidocaine anesthetic, and fluoroscopic guidance throughout, a 10.2 Jordanian pneumothorax catheter was advanced through the intercostal space of the right fourth and fifth ribs and into to the thoracic cavity. Utilizing a 60 cc syringe, free air was aspirated from the thoracic cavity. The catheter was then secured and a one-way Heimlich valve was attached to the catheter. There was no complication. The patient tolerated this procedure well. Following this, the patient was taken back to his room on the medical floor for continued monitoring. Impression: Successful placement of a 10.2 Jordanian pneumothorax catheter into the right hemithorax. Toni Gabriel RPA/LUCA performed this under my direct supervision. .
[2017-10-04] MEDS ORDERED: LOPERAMIDE 2 MG CAPSULE PO PRN (18:15)
[2017-10-04] MEDS: FAMOTIDINE 20 MG TABLET PO SCH (20:42)
[2017-10-04] MEDS ORDERED: FAMOTIDINE 20 MG TABLET PO SCH (21:00)
[2017-10-04] MEDS: Oxycodone/Apap 10/325 1 TAB PO PRN (22:03)
[2017-10-05] MEDS: Oxycodone/Apap 10/325 1 TAB PO PRN ×2 (07:53→18:48)
[2017-10-05] MEDS: FAMOTIDINE 20 MG TABLET PO SCH ×2 (07:53→08:48)
[2017-10-05] MEDS: LORATADINE 10 MG TABLET PO SCH ×2 (07:53→08:48)
--- NOTE | 2017-10-05 09:26 | XRay Report ---
Indication: F/U chest tube, pneumothorax Procedure: XR chest 1V: Encounter: Subsequent Comparison: Prior chest radiographs of the same and previous day's Technique: A single portable AP chest radiograph was obtained. Findings: Life support devices: Small-caliber right-sided chest tube in place. Unchanged right IJ Port-A-Cath. Lungs and airways: Low lung volumes related to expiratory technique with associated basilar atelectasis. No focal airspace consolidation. Normal pulmonary vasculature. Pleura: No pleural effusion or pneumothorax. Heart and mediastinum: The cardiomediastinal silhouette and great vessels are within normal limits. Osseous structures and soft tissues: No acute osseous abnormality is seen. Subcutaneous gas within the right chest wall. Impression: 1. No residual/recurrent right pneumothorax appreciated with small caliber right-sided chest tube in place. 2. Mild associated subcutaneous gas within the right chest wall. 3. Low lung volumes related to expiratory technique with associated basilar atelectasis. .
--- NOTE | 2017-10-05 09:28 | XRay Report ---
Indication: F/U pneumothorax Procedure: XR chest 1V: Encounter: Subsequent Comparison: 10/04/2017 Technique: Two portable AP chest radiographs were obtained in inspiration and expiration Findings: Life support devices: Unchanged small caliber right sided chest tube and right IJ Port-A-Cath. Lungs and airways: Low lung volumes with associated basilar atelectasis. No other focal airspace consolidation. Normal pulmonary vasculature. Pleura: Small recurrent right apical pneumothorax with approximately 8 mm pleural separation. No pleural effusion. Heart and mediastinum: The cardiomediastinal silhouette and great vessels are within normal limits. Osseous structures and soft tissues: No acute osseous abnormality is seen. Persistent subcutaneous gas within the right chest wall. Impression: Small recurrent right apical pneumothorax with approximately 8 mm pleural separation. Small caliber right-sided chest tube remains in place. .
--- NOTE | 2017-10-05 11:28 | Progress Note ---
- Date 10/05/17 Subjective: Mateusz is seen this morning while sleeping. He states that overall he feels good. Breathing feels better than last night, Heimlich valve chest tube remains inplace. Mateusz denies having any pain and reports appetite is good. Noted to be bradycardic at time when sleeping- however this is chronic. Objective Vital signs: Temperature 96.9 F 10/05/17 07:58 Pulse Rate 39 L 10/05/17 08:48 Respiratory Rate 16 10/05/17 07:58 Blood Pressure 115/80 10/05/17 07:58 Pulse Oximetry 95 10/05/17 07:58 Height/Weight/BMI: Height 1.73 m Weight 76.3 kg Body Mass Index 25.0 - Constitutional Present: no acute distress, well nourished, well developed - Routine HEENT Exam Eye: Present: EOMI ENT: Present: mucous membranes moist, dentition normal - Routine Respiratory Exam Present: diminished air movement. Absent: wheezes - Routine Cardiovascular Exam Present: RRR, S1, S2. Absent: murmur - Routine Abdominal Exam Present: soft, normoactive bowel sounds, non distended. Absent: tenderness - Routine Extremities Exam Present: normal capillary refill - Routine Skin Exam Present: dry, warm - Routine Neurological Exam Present: alert, oriented X3, CN II-XII intact - Routine Lymphatic Exam Lymphatic: Absent: adenopathy - Routine Psychiatric Exam Present: normal affect Results - Labs CBC & Chem 7: 10/05/17 04:03 10/05/17 04:03 Assessment and Plan Assessment and Plan: Assessment Right pneumothorax, acute; post procedure S/P right lung needle biopsy, 10/03/17. Colon cancer, stage HANH. 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 Chronic pain. History of MRSA. Vitamin D deficiency. 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 Lumbar radiculopathy. Systolic murmur. History of epistaxis. Allergic rhinitis. GERD. Plan Heimlich valve chest tube remains inplace Chest X-ray this morning revels- ? increased Pneumothorax Would like Dr Lopez's recommendation if Heimlich size is sufficient for tx and is he ? Stable for discharge Could consider follow up with Dr Gleason Monitor telemetry- Remi at times Otherwise appears to be stable without complaints DVT Prophylaxis: SCD's Resuscitation Status: Full Code - Physician Narrative Physician: Edgar Holcomb MD Narrative: Date: 10/05/17 Time: 1514 Have independently interviewed and examined pt. Chart reviewed. Case discussed with radiology and my PMP CERTIFIED PROJECT MANAGER. Care plan developed with my supervision; agree with above. Doing well this afternoon. Breathing stable. Much less discomfort to chest. No cough. Not nausea. Lungs: decreased bilaterally, no distress on RA. CV: regular AB: soft nt/nd MSE: awake alert Plan: Repeat CXR showing very slight pneumothorax. Will clamp chest tube and recheck CXR in 2 hours. If CXR showing stability, likely can remove chest tube and discharge to home. Hospital Course Summary Disclaimer: The visit summary below is not to be considered part of the above Progress Note. Hospital Course: Plan - 10/04/17: Admit to observation status under the care of Dr. Holcomb. Dr. Lopez consulted for potential surgical intervention. Small caliber Heimlich valve chest tube to be placed. Monitor respiratory status closely on telemetry with continuous pulse oximetry. Oxygen as needed to maintain SAO2 >90%, weaning as able. Will obtain CBC and CMP now for further assessment on admission. Recheck labs in AM to monitor blood counts, electrolytes and renal function. History of electrolyte imbalances, neutropenia and anemia. Morphine and oxycodone for pain control. Zofran as needed for nausea/vomiting. Regular diet as tolerated following chest tube placement. Consider pulmonology consult to Dr. Gleason given placement of chest tube.\ Continue home medications. Upon discharge, patient's care will be returned to his PCP, Dr. Rudolph. Patient requests to be a FULL CODE. 10/05/17 Heimlich valve chest tube remains inplace Chest X-ray this morning revels- ? increased Pneumothorax Would like Dr Lopez's recommendation if Heimlich size is sufficient for tx and is he ? Stable for discharge Could consider follow up with Dr Gleason Monitor telemetry- Remi at times Otherwise appears to be stable without complaints
--- NOTE | 2017-10-05 14:11 | XRay Report ---
Indication: F/U pneumothorax Procedure: XR chest 2V: Encounter: Initial Comparison: Prior chest radiographs of the same day Technique: PA and lateral radiographs of the chest were obtained. Findings: Life support devices: Unchanged small caliber right-sided chest tube and right IJ Port-A-Cath. Lungs and airways: Improved lung volumes. No focal airspace consolidation. Normal pulmonary vasculature. Pleura: No pleural effusion. Unchanged small right apical pneumothorax again with approximately 8 mm pleural separation. Heart and mediastinum: The cardiomediastinal silhouette and great vessels are within normal limits. Osseous structures and soft tissues: No acute osseous abnormality is seen. Improved but persistent right chest wall subcutaneous gas. Impression: Unchanged small right apical pneumothorax, again with approximately 8 mm pleural separation. Unchanged small caliber right-sided chest tube. .
[2017-10-05 15:50] VITALS: BP 132/74; RESP 18; TEMP 96.1
[2017-10-05 16:56] VITALS: PULSE 69
[2017-10-05 17:10] VITALS: O2SAT 97
--- NOTE | 2017-10-05 18:27 | Discharge Summary ---
Discharge Information Date of admission: 10/04/17 15:50 Anticipated date of discharge: 10/05/17 Attending Physician: Edgar Holcomb MD Primary care physician: Jeanie Rudolph APRN Consults: Physician Consult: Jairon Lopez Reason For Exam: pneumothorax - Discharge Diagnosis (1) Pneumothorax of right lung after biopsy Status: Acute Discharge diagnosis Right pneumothorax, acute; post procedure S/P right lung needle biopsy, 10/03/17. Associated conditions and complications Colon cancer, stage HANH. 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 Chronic pain. History of MRSA. Vitamin D deficiency. 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 Lumbar radiculopathy. Systolic murmur. History of epistaxis. Allergic rhinitis. GERD. - Procedures Procedures: Date of Exam: 10/04/17 Type of Exam: FL fluoroscopy chest tube placement CHEST TUBE PLACEMENT WITH FLUOROSCOPIC GUIDANCE: Technique: After discussing the details of the procedure, including the risks, the patient wished to proceed. Informed consent was obtained. A preprocedural timeout was performed to confirm the correct patient and procedure. Using aseptic technique, local lidocaine anesthetic, and fluoroscopic guidance throughout, a 10.2 Albanian pneumothorax catheter was advanced through the intercostal space of the right fourth and fifth ribs and into to the thoracic cavity. Utilizing a 60 cc syringe, free air was aspirated from the thoracic cavity. The catheter was then secured and a one-way Heimlich valve was attached to the catheter. There was no complication. The patient tolerated this procedure well. Following this, the patient was taken back to his room on the medical floor for continued monitoring. Impression: Successful placement of a 10.2 Albanian pneumothorax catheter into the right hemithorax. - Laboratory Labs: Admit Lab 10/04/17 18:57 WBC 5.9 Hgb 12.7 L Hct 38.5 L MCV 91.4 Plt Count 118 L Neut % (Auto) 78.6 H Lymph % (Auto) 15.0 L Andrews % (Auto) 4.2 Eos % (Auto) 2.0 Admit Lab 10/04/17 18:57 Sodium 144 Potassium 3.8 Chloride 110 H Carbon Dioxide 25 Anion Gap 9 BUN 14.0 Creatinine 1.1 GFR Calculation 69 BUN/Creatinine Ratio 13 Glucose 145 H Calculated Osmolality 281 H Calcium 8.9 Total Bilirubin 0.40 AST 28 ALT 27 Alkaline Phosphatase 141 H Total Protein 6.7 Albumin 3.8 Globulin 2.9 Albumin/Globulin Ratio 1.3 10/05/17 04:03 10/05/17 04:03 - Radiology Radiology: Date of Exam: 10/04/17 Type of Exam: XR chest 1V Findings: Life support devices: Small-caliber right-sided chest tube in place. Unchanged right IJ Port-A-Cath. Lungs and airways: Low lung volumes related to expiratory technique with associated basilar atelectasis. No focal airspace consolidation. Normal pulmonary vasculature. Pleura: No pleural effusion or pneumothorax. Heart and mediastinum: The cardiomediastinal silhouette and great vessels are within normal limits. Osseous structures and soft tissues: No acute osseous abnormality is seen. Subcutaneous gas within the right chest wall. Impression: 1. No residual/recurrent right pneumothorax appreciated with small caliber right -sided chest tube in place. 2. Mild associated subcutaneous gas within the right chest wall. 3. Low lung volumes related to expiratory technique with associated basilar atelectasis. Date of Exam: 10/05/17 Type of Exam: XR chest 1V Findings: Life support devices: Unchanged small caliber right sided chest tube and right IJ Port-A-Cath. Lungs and airways: Low lung volumes with associated basilar atelectasis. No other focal airspace consolidation. Normal pulmonary vasculature. Pleura: Small recurrent right apical pneumothorax with approximately 8 mm pleural separation. No pleural effusion. Heart and mediastinum: The cardiomediastinal silhouette and great vessels are within normal limits. Osseous structures and soft tissues: No acute osseous abnormality is seen. Persistent subcutaneous gas within the right chest wall. Impression: Small recurrent right apical pneumothorax with approximately 8 mm pleural separation. Small caliber right-sided chest tube remains in place. - Date of Exam: 10/05/17 Type of Exam: XR chest 2V Findings: Life support devices: Unchanged small caliber right-sided chest tube and right IJ Port-A-Cath. Lungs and airways: Improved lung volumes. No focal airspace consolidation. Normal pulmonary vasculature. Pleura: No pleural effusion. Unchanged small right apical pneumothorax again with approximately 8 mm pleural separation. Heart and mediastinum: The cardiomediastinal silhouette and great vessels are within normal limits. Osseous structures and soft tissues: No acute osseous abnormality is seen. Improved but persistent right chest wall subcutaneous gas. Impression: Unchanged small right apical pneumothorax, again with approximately 8 mm pleural separation. Unchanged small caliber right-sided chest tube. History of Present Illness HPI: Mateusz Cummings is a very pleasant 57-year-old male patient of Dr. Rudolph who follows with Dr. Naqvi for his stage AHNH colon cancer. He reports that he underwent a scheduled lung needle biopsy to his right anterior middle lobe on . Chest x-ray following the procedure revealed mildly sized right pneumothorax. Serial chest x-rays revealed persistent right pneumothorax with the most recent chest x-ray being today, 10/04/17 which revealed sizable right- sided pneumothorax that had increased in size since the previous study on . Due to his persistent pneumothorax, Dr. Holcomb was consulted and he was accepted into observation status for further evaluation, close respiratory monitoring and placement of a chest tube. His length of stay is not expected to exceed more than 2 over nights. On exam, he is seen immediately upon his arrival to his room. He is sitting up in bed with nursing present. He complains of diffuse right sided chest and back pain as well as mild shortness of breath. No recent fevers, chills, nausea , vomiting, dysuria or diarrhea. He also reports occasional dry cough since undergoing the lung biopsy. He is breathing easily on room air without signs of distress. Nursing easily accesses his port. For complete details of the H&P refer to that document. Objective Vital signs: Temperature 96.1 F L 10/05/17 15:49 Pulse Rate 69 10/05/17 16:02 Respiratory Rate 18 10/05/17 15:49 Blood Pressure 132/74 10/05/17 15:49 Pulse Oximetry 97 10/05/17 17:00 Height/Weight/BMI: Height 1.73 m Weight 76.3 kg Body Mass Index 25.0 Hospital Course This is a general summary of the patient's hospital course. For more details refer to the complete medical record. Hospital course: 10/04/17 Admit to observation status under the care of Dr. Holcomb. Dr. Lopez consulted for potential surgical intervention. Small caliber Heimlich valve chest tube to be placed. Monitor respiratory status closely on telemetry with continuous pulse oximetry. Oxygen as needed to maintain SAO2 >90%, weaning as able. Will obtain CBC and CMP now for further assessment on admission. Recheck labs in AM to monitor blood counts, electrolytes and renal function. History of electrolyte imbalances, neutropenia and anemia. Morphine and oxycodone for pain control. Zofran as needed for nausea/vomiting. Regular diet as tolerated following chest tube placement. Continue home medications. Upon discharge, patient's care will be returned to his PCP, Dr. Rudolph. Patient requests to be a FULL CODE. 10/05/17 Heimlich valve chest tube remains in place Chest X-ray this morning revels - small increased Pneumothorax Would like Dr Lopez's recommendation if Heimlich size is sufficient for tx and is he ? Stable for discharge Monitor telemetry- Remi at times Otherwise appears to be stable without complaints-pain controlled, breathing well on RA. Repeat CXR show stability in small pneumothorax. Did clamp chest tube and repeated CXR, again showing stability. In discussion with Dr Lopez, will leave chest tube in for the next several days to allow for further decompression. Advised patient not to shower or submerge chest tube. Will keep chest tube open to flapper valve - gauze wrap on flapper valve to control any small drainage. Patient will watch for increase difficulty breathing, increased pain to chest or increased drainage. Will have follow up with Dr Lopez on October 10 or for chest tube removal. Will need CXR prior to visit to assess size of pneumothorax. May discharge to home in stable condition. See orders for details. Time spent with patient: discharge greater than 30 minutes Resuscitation Status: Full Code Discharge Plan - Discharge Disposition Discharge Date: 10/05/17 Disposition: 01 Discharged Home, Self-Care *Condition: Stable Reason For Visit (Visit label in EMR): Post procedure pneumothorax - Discharge Medications *Discharge Medications: Continue RX: Acetaminophen [Tylenol] 500 - 1,000 mg PO PRN PRN PRN Reason: Pain RX: Loratadine [Claritin] 10 mg PO DAILY RX: Famotidine [Pepcid] 1 tab PO BID RX: Oxycodone HCl 10 mg PO Q4H PRN PRN Reason: Pain RX: Loperamide [Imodium] 2 mg PO PRN PRN PRN Reason: Diarrhea - Discharge Packet/Instructions *Diet: Regular *Activity: As tolerated. *Pain Management/Treatment: Continue prior home pain medications. *Wound Care: Do not get chest drain dressing wet - sponge baths only until after tube removed. Additional Instructions: Call Dr. Lopez's office to schedule an appointment next Tuesday or Tuesday for possible removal of your chest tube - (Option 3 when the recording starts). *Expected Signs/Symptoms: Stability of breathing. *Notify Physician if: Temp > 100.4. [place] shortness of breath or increasing pain with breathing. Chest tube inadvertently coming out. Significant drainage from chest tube. *During Business Hours Contact: Dr Lopez *After Business Hours Contact: Call [facility] and have your care provider contacted. *Pending Lab/Results: No Pending Lab - Referrals/Follow Up *Referrals/Follow Up: Robert Naqvi MD [Physician] - (As scheduled for oncological care. ) Jairon Lopez MD [Physician] - (Call Dr Rey's office tomorrow (10/06 ) to set up appointment on Tuesday or Tuesday to have chest tube removed - will need chest Xray before seeing Dr Rey. ) Jeanie Rudolph APRN [Primary Care Provider] - (As scheduled for medical care. ) - Patient Handouts Patient Handouts: Spontaneous Pneumothorax (DC), How to Care for Your Chest or Abdominal Catheter (DC) - Dismissal Complete Discharge Instructions are:: Complete Physician Narrative - Narrative Physician: Edgar Holcomb MD Attestation Narrative: Date: 10/05/17 Time: 1823 I have independently interviewed and examined patient prior to discharge. See my progress note for details. Medically stable for discharge to home.
--- NOTE | 2017-10-05 18:31 | XRay Report ---
Indication: F/U pneumothorax PROCEDURE: XR chest 1V: Encounter: Initial Comparison: 10/05/2017 at 1341 hours Findings: There is a pigtail catheter overlying the right mid to upper lung field without a definite detectable residual pneumothorax. There is a right IJ port in place with its tip at the right atrial SVC junction. The lungs appear slightly hyperinflated. Trachea is midline. There is mild prominence of the cardiac silhouette which may be accentuated by the AP portable technique. IMPRESSION: Right apical chest tube in place without definite detectable residual right apical pneumothorax. .
--- NOTE | 2017-10-10 08:59 | Consultation ---
DATE OF CONSULTATION 10/04/2017 REASON FOR CONSULTATION Chest tube management. CONSULTING PHYSICIAN Jairon Lopez MD REQUESTING PHYSICIAN Dr. Holcomb IMPRESSION 1. Right-sided iatrogenic pneumothorax related to CT-guided lung biopsy. This has successfully resolved with placement of a Pneumocath. 2. Stage IV colon cancer with lung metastases. RECOMMENDATIONS 1. Continue chest tube to Heimlich valve and reassess with an x-ray tomorrow. 2. The pneumothorax seems to be adequately managed currently with the current plan of care. KATIE Child is a 57-year-old male patient who usually sees Dr. Beltran for his surgical care. He had a CT-guided needle biopsy of the right anterior middle lobe on 10/03/2017 and developed a right pneumothorax. He was having serial chest x-rays to follow the pneumothorax but his pneumothorax worsened today to the point of requiring admission and Pneumocath placement by Radiology. OBJECTIVE GENERAL: The patient is awake and alert, in no acute distress. LUNGS: Equal breath sounds bilaterally. He has a Pneumocath in place connected to a Heimlich valve with minimal bloody drainage in the tubing. [facility]
--- NOTE | 2017-10-10 09:09 | Progress Note ---
DATE OF VISIT 10/05/2017 REASON FOR VISIT Follow pneumothorax. SUBJECTIVE Mateusz is doing fine. His Pneumocath had been clamped and he has been having serial x-rays. OBJECTIVE GENERAL: The patient is awake and alert, in no acute distress. LUNGS: Equal breath sounds bilaterally. His Pneumocath remains in position but is clamped. IMAGING Chest x-ray this morning showed a small residual pneumothorax. IMPRESSION 1. Iatrogenic right pneumothorax secondary to CT-guided lung biopsy - stable with right-sided Pneumocath in place. 2. Metastatic colon cancer with lung metastases. PLAN 1. I did discuss chest tube management with Mateusz and explained that it may be possible to remove his chest tube in the short-term but that there would be the potential for reaccumulation of his pneumothorax if the biopsy site had not fully sealed. The other option I presented was going home with the chest tube connected to a Heimlich valve and following up next week for removal in the office. He opted for a more conservative continuation of the chest tube with follow up in my clinic. 2. Recheck next Tuesday or Tuesday with a repeat chest x-ray prior to the clinic visit to see if the pneumothorax remains resolved. 3. Continue the chest tube to the Heimlich valve. I will have the nurse wrap another gauze around the Heimlich valve to control drainage before dismissal. 4. No showering while the chest tube is in position. He will need to use sponge baths. This was discussed with the patient. [facility]
== END 2017-10-05 18:50 | disposition home or self-care (01) ==
LOC: MED
PROVIDERS: ADMIT Hospitalist; ATTEND Hospitalist